=== PATIENT | male | born 1980 | race Caucasian/White ===

== ENCOUNTER 2025-02-24 15:01 | Emergency (ER) | payer MEDICAID, SELFPAY ==
[2025-02-24 15:13] VITALS: BP 143/96; PULSE 85; RESP 18; TEMP 36.9; O2SAT 96; BMI 31.4
--- NOTE | 2025-02-24 15:18 | EDNOTE_ITS ---
<Statement entered by Sherrell Leal MD - 03/16/25 06:20> As co-signing physician, I was present and available for consult prn. I concur with the plan and care as documented by the midlevel provider. ED Eye Problem RME/HPI General Chief complaint: Eye Problems Stated complaint: LEFT EYE RED, MAY HAVE SAW DUST IN IT Time Seen by Provider: 02/24/25 15:18 Arrival date/time: 02/24/25 15:01 RME / HPI RME / HPI Narrative: 44-year-old male with a past medical history of an astigmatism who uses glasses to see who does not use contact lenses. Who presents to the ER complaining of left eye irritation, redness, and blurriness x 4 days. Denies fever, nausea vomiting, floaters, flashing lights, loss of vision, double vision. Last Tdap 2017 Exam: Constitutional: Vital Signs Reviewed. Well appearing. No acute distress. Not toxic appearing. Head: Normocephalic, atraumatic. Eyes: Conjunctiva clear. Eyes: Periorbital regions normal to inspection and palpation bilaterally unless otherwise noted. Left Conjunctiva injected. Sclera anicteric bilaterally. Pupils equal, round, and reactive to light bilaterally. Extraocular movements intact bilaterally. Visual butler intact by confrontation bilaterally. No hyphema or hypopyon bilaterally. ENT: Mucous membranes moist. Neck: Trachea midline. Normal range of motion. No nuchal rigidity. Respiratory: Normal effort. No respiratory distress or accessory muscle use. Neuro: Alert and oriented. Speech normal. No focal gross motor or sensory deficits observed. Skin: Warm, dry, normal color. Psych: Pleasant. Normal affect. Cooperative. Related Data Previous Rx's ?Medication ?Instructions ?Recorded moxifloxacin 0.5 % eye drops 1 drp ophthalmic (eye) TI D 7 days 02/24/25 (Vigamox) #3 mL Allergies Allergy/AdvReac Type Severity Reaction Status Date / Time aspirin Allergy Anaphylaxis Verified 02/24/25 15:08 NSAIDS (Non-Steroidal Allergy Anaphylaxis Verified 02/24/25 15:08 Anti-Inflamma Penicillins Allergy Anaphylaxis Verified 02/24/25 15:08 ED Exam Narrative Physical exam: Constitutional: Vital Signs Reviewed. Well appearing. No acute distress. Not toxic appearing. Head: Normocephalic, atraumatic. Eyes: Periorbital regions normal to inspection and palpation bilaterally unless otherwise noted. Left Conjunctiva injected. Sclera anicteric bilaterally. Pupils equal, round, and reactive to light bilaterally. Extraocular movements intact bilaterally. Visual butler intact by confrontation bilaterally. No hyphema or hypopyon bilaterally. ENT: Mucous membranes moist. Neck: Trachea midline. Normal range of motion. No nuchal rigidity. Respiratory: Normal effort. No respiratory distress or accessory muscle use. Neuro: Alert and oriented. Speech normal. No focal gross motor or sensory deficits observed. Skin: Warm, dry, normal color. Psych: Pleasant. Normal affect. Cooperative. Course Course Course Narrative: MDM: conjunctivitis No appreciation for gross FB Doubt the following diagnosis: uveitis (No photophobia, floaters), keratitis (no photophobia, decreased vision), iritis (No perilimbal erythema, photophobia), scleritis (No hyperemic violacious patches of one quadrant of the globe, glaucoma (No steamy cornea or N/V), orbital cellulitis (no pain with EOM) and no significant decreased visual acuity Plan for topical abx, f/u with pmd and optho in 1-2 days. Strict ER return precautions advised. Quality Measures none Orders Category Date Time Status ED Eye Irrigation ONCE Care 02/24/25 15:22 Completed Tonometer to Bedside X1 Care 02/24/25 15:22 Completed Visual Acuity NOW Care 02/24/25 15:22 Completed Tate Lamp to Bedside X1 Care 02/24/25 15:22 Completed Fluorescein Sodium [Bio-Dulce Maria] Med 02/24/25 15:22 Discontinued 1 mg BOTH EYES X1 ONE TET,DIP/PERT AC (Adult)-Tdap [Boostrix Adult (Tdap) Med 02/24/25 15:22 Discontinued Vacc] 0.5 ml IMI .ONCE ONE TETRACAINE Op Mindi 0.5% [Pontocaine Op Mindi 0.5%] Med 02/24/25 15:22 Discontin ued 1 drop BOTH EYES X1 ONE Reevaluation(s) Reevaluation #1: At the time of reassessment, the patient remains alert and oriented ?3 with GCS 15. Vitals are normal, pain is controlled, and the patient is tolerating oral intake without nausea or vomiting. The patient is agreeable to discharge and verbalizes understanding of the diagnosis, studies, treatment plan, medications (including side effects/precautions), and strict ER return precautions as discussed in the ED. All concerns were addressed, and the patient is comfortable with the plan. Vital Signs Vital signs: Vital Signs Temperature 98.5 F 02/24/25 15:13 Pulse Rate 85 02/24/25 15:13 Respiratory Rate 18 02/24/25 15:13 Blood Pressure 143/96 H 02/24/25 15:13 Pulse Oximetry (%) 96 02/24/25 15:13 Oxygen Delivery Method Room Air 02/24/25 15:13 PROCEDURES: Tate Lamp Exam Left eye: Flourescein uptake:: No Tate Lamp Findings: Normal Eye Patient data External records reviewed:: None Clinical information provided by:: patient Social determinants that could affect healthcare access:: none Patient has the following chronic illnesses:: As noted How is presenting disease/condition affected by chronic disease/condition?: no chronic disease Evaluation data The following diagnostics were reviewed and interpreted by me:: other (specify) Lab and/or radiology exams considered but not ordered:: Additional Labs and radiology considered, but not ordered as they were not clinically indicated at this time. Interpretation Summary: As noted Medications / Prescriptions Medications or Prescriptions considered but not ordered:: I considered prescription management (both outpatient prescriptions AND drug treatment in the ER) and decided that this was necessary and was prescribed as charted. Medication administrations:: Medication Administration History Discontinued Medications Diphtheria/Tetanus/Acell Pertussis (Diphth,Pertuss(Acell),Tet Vac 0.5 Ml Syr- Adult) 0.5 ml IMi .ONCE ONE Stop: 02/24/25 15:23 Last Admin: 02/24/25 16:03 Dose: Not Given Documented By: BRENT Non-Admin Reason: Patient Refused Fluorescein Sodium (Fluorescein Sod 1 Mg Strp) 1 mg BOTH EYES X1 ONE Stop: 02/24/25 15:23 Last Admin: 02/24/25 15:32 Dose: 1 mg Documented By: BRENT Comments: USED BY PROVIDER Tetracaine HCl (Tetracaine Pf Op Mindi 0.5% 4 Ml Drpette) 1 drop BOTH EYES X1 ONE Stop: 02/24/25 15:23 Last Admin: 02/24/25 15:32 Dose: 1 drop Documented By: BRENT Comments: USED BY PROVIDER As noted Consultations Consultation(s) initiated? (list below): No Diagnosis Eye Problem Differential Diagnosis: corneal abrasion, conjunctivitis, acute usha is and corneal ulcer Most likely diagnosis given after review of the tests above:: Subclinical corneal abrasion versus acute conjunctivitis Admission Indicated Admission indicated?: not indicated Admission Request Was there a request for admission?: No Disposition Plan Disposition Plan: Discharge Discharge Attestation Discharge Attestation: The patient and all family members were given an opportunity to ask questions and understood the discharge instructions. Discharge instructions specifically effects, indications for sooner follow up or return to the emergency department, and the expected course of current diagnosis. Patient condition: Stable Discharge Plan Plan Patient Disposition: HOME (Self Care) Patient condition on transfer: Stable Prescriptions/Referrals Prescriptions/Med Rec: New moxifloxacin [Vigamox] 0.5 % drops 1 drp ophthalmic (eye) TID 7 Days Qty: 3 0RF Problem List Clinical Impression: Bacterial conjunctivitis Patient/Caregiver Discharge Instructions Education Materials: ED Conjunctivitis, Bacterial Additional Instructions: Follow up with your primary medical doctor and an opthalmologist or assistant manager retail within 24 hours. Return to the Emergency Room immediately for any new, worsening, continuing symptoms or any concerns at all. Return to the Emergency Room within 24 hours if you are unable to follow up with your primary medical doctor and an opthalmologist or assistant manager retail within 24 hours. Print Language: Sami Stand Alone Forms: Jena Award Info., Patient Portal Info Letter PA/YUKO Supervising Physician MAHNAZ/YUKO Supervising Physician: Dr. Mel COLIN Attestation Attestation Dr. Leal
[2025-02-24] MEDS: TETRACAINE PF OP SOL 0.5% 4 ML DRPETTE 1 DROP BOTH EYES (15:32)
[2025-02-24] MEDS: FLUORESCEIN SOD 1 MG STRP BOTH EYES (15:32)
== END 2025-02-24 16:18 | disposition home or self-care (01) ==
LOC: SERX 16:08
PROVIDERS: Emergency Provider Nurse Practitioner Primary Care
DX: H10.89 Other conjunctivitis (principal)
CPT/HCPCS: 99281